=== PATIENT | male | born 1945 | race Two or more races ===

== ENCOUNTER → 2018-07-26 | Outpatient (CLI) | payer MEDICARE ==
--- NOTE | 2018-07-26 09:33 | US ---
EXAMINATION TYPE: US liver DATE OF EXAM: 07/26/2018 COMPARISON: CT 2011 CLINICAL HISTORY: R94.5 ABN LIVER FUNCTIONS. large body habitus EXAM MEASUREMENTS: Liver Length: 13.1 cm Gallbladder Wall: 0.1 cm CBD: 0.2 cm Right Kidney: 10.0 X 4.6 X 4.2 cm Pancreas: Obscured by bowel gas Liver: fatty liver Gallbladder: wnl Evidence for sonographic Wagner's sign: No CBD: wnl Right Kidney: wnl IMPRESSION: 1. Mild hepatic steatosis. Otherwise unremarkable study.
== END | disposition home or self-care (01) ==
LOC: RADUSWWP 08:45
PROVIDERS: ATTEND Family Medicine
DX: K76.0 Fatty (change of) liver, not elsewhere classified (principal)
CPT/HCPCS: 76705

== ENCOUNTER 2024-07-20 08:40 | Emergency (ER) | payer MEDICARE ==
[2024-07-20] MEDS ORDERED: SODIUM CHLORIDE 0.9% 1,000 ML BAG ONE (10:36)
[2024-07-20] MEDS ORDERED: ACETAMINOPHEN IV (For NPO) 1,000 MG/100 ML VIAL ONE (10:36)
--- NOTE | 2024-08-09 08:18 | CT ---
Report Patient: Solo Colvin Ordering Physician: Unknown, Unknown ID: [id number] Phone, Pager: Phone: N/A Pager: N/A : 1945 Age/Gender: 79Y, M Primary Location: N/A Procedure: CT brain wo con Study Date: 07/20/2024 10:06:00 AM EXAMINATION TYPE: CT brain wo con DATE OF EXAM: 07/20/2024 COMPARISON: None HISTORY: 79-year-old male fall, syncope TECHNIQUE: Examination was done in axial plane without intravenous contrast. Coronal and sagittal r econstructions performed. CT DLP: 1106.4 mGycm Automated exposure control for dose reduction was used. FINDINGS: There is no evidence of acute intracranial hemorrhage, acute ischemic changes, mass, mass-effect, or extra-axial fluid collection. There is no effacement of cerebral sulci or basal subarachnoid cister ns. There is no midline shift. Lehman-white matter distinction is preserved. Benign basal ganglionic calcifications on both sides. Mild ventricular prominence likely due to age-r elated central cerebral volume loss. Atherosclerotic calcifications within the carotid siphons. Mild mucosal thickening scattered through the ethmoid air cells and also along the floor of the left maxillary sinus. Orbits and globes are intact. Mastoid air cells well pneumatized. IMPRESSION: Mild age-related cerebral atrophy. No acute intracranial abnormality seen.
--- NOTE | 2024-08-14 11:58 | XR ---
Patient: Solo Colvin Ordering Physician: Unknown, Unknown ID: [id number] Phone, Pager: Phone: N/A Pager: N/A : 1945 Age/Gender: 79Y, M Primary Location: N/A Procedure: XR chest 2V Study Date: 07/20/2024 10:09:37 AM EXAMINATION TYPE: XR chest 2V DATE OF EXAM: 07/20/2024 COMPARISON: 08/18/2013 HISTORY: 79-year-old male fainted with fall. TECHNIQUE: PA and lateral views FINDINGS: Heart mildly enlarged. Prominent pleural parenchymal opacities throughout the right lung shows simila r appearance compared to 08/18/2013. There are chronic fracture deformities throughout the right hemit horax. Patchy and interstitial change especially at the left base appears slightly increased. IMPRESSION: 1. Multiple old right-sided rib fracture deformities. Extensive underlying pleural-parenchymal opacit y may represent post traumatic sequela and fibrosis. An underlying infiltrate would need to be exclud ed on a clinical basis. Patchy atelectasis/infiltrate at the left base appears increased. 2. Correlate to exclude mild fluid overload. No pleural effusion.
--- NOTE | 2024-08-14 11:58 | XR ---
Report Patient: Solo Colvin Ordering Physician: Unknown, Unknown ID: [id number] Phone, Pager: Phone: N/A Pager: N/A : 1945 Age/Gender: 79Y, M Primary Location: N/A Procedure: XR elbow complete LT Study Date: 07/20/2024 10:11:31 AM EXAMINATION TYPE: XR elbow complete LT DATE OF EXAM: 07/20/2024 COMPARISON: NONE HISTORY: 79-year-old male fainted with fall onto elbow TECHNIQUE: 3 views FINDINGS: Some bony spurring at both medial and lateral condyles and some degenerative spurring at th e elbow joint particularly on the lateral view. There is an underlying elbow joint effusion present. Both radiocapitellar and ulnotrochlear lines are appropriately delineated. IMPRESSION: 1. Some degenerative spurring and mild chronic enthesopathy at the common flexor and extensor tendon origins. 2. While no acute fracture is seen, the presence of an underlying elbow joint effusion raises concern for occult osseous injury or internal derangement. Follow-up in 10-14 days.
== END 2024-07-20 12:21 | disposition home or self-care (01) ==
LOC: EC 08:40
CPT/HCPCS: 29125; 70450; 71046; 93005; 99283

== ENCOUNTER 2024-12-09 09:10 | Emergency (ER) | payer MEDICARE ==
[2024-12-09 09:42] VITALS: RESP 18
--- NOTE | 2024-12-09 09:59 | ED ---
Extremity Problem HPI - General Chief complaint: Extremity Problem,Nontraumatic Stated complaint: rt leg injury Time Seen by Provider: 12/09/24 09:43 Source: patient, RN notes reviewed Mode of arrival: wheelchair Limitations: physical limitation - History of Present Illness Initial comments: 79-year-old male presents emergency department complaint of right knee pain. Patient states that he is had issues but states overnight he started having increasing pain and states that he cannot bend it. Patient states she had no redness no fevers or chills no prior history of DVT. Patient states he had no falls. - Related Data Allergies Allergy/AdvReac Type Severity Reaction Status Date / Time No Known Allergies Allergy Verified 12/09/24 09:34 Review of Systems ROS Statement: Those systems with pertinent positive or pertinent negative responses have been documented in the HPI. ROS Other: All systems not noted in ROS Statement are negative. Past Medical History Past Medical History: Diabetes Mellitus, Eye Disorder, Hyperlipidemia, Hypertension Additional Past Medical History / Comment(s): glaucoma History of Any Multi-Drug Resistant Organisms: None Reported Past Surgical History: Tonsillectomy Past Psychological History: No Psychological Hx Reported Smoking Status: Never smoker Past Alcohol Use History: Daily Past Drug Use History: None Reported General Exam Limitations: physical limitation General appearance: alert, in no apparent distress Neck exam: Present: normal inspection, full ROM. Absent: tenderness, meningis mus, lymphadenopathy Respiratory exam: Present: normal lung sounds bilaterally. Absent: respiratory distress, wheezes, rales, rhonchi, stridor Cardiovascular Exam: Present: regular rate, normal rhythm, normal heart sounds. Absent: systolic murmur, diastolic murmur, rubs, gallop, clicks Extremities exam: Present: other (Right knee moderate swelling, neurovascular intact, small effusion noted, pedal pulses equal bilaterally pain with range of motion.) Course Vital Signs 12/09/24 12/09/24 09:35 11:55 Temperature 98.3 F 98.6 F Pulse Rate 79 71 Respiratory 18 18 Rate Blood Pressure 159/83 154/80 O2 Sat by Pulse 97 97 Oximetry Medical Decision Making - Medical Decision Making Was pt. sent in by a medical professional or institution (, PA, PLAY LEADER, urgent care, hospital, or long-term...) When possible be specific @ -No Did you speak to anyone other than the patient for history (EMS, parent, family, police, friend...)? What history was obtained from this source @ -No Did you review nursing and triage notes (agree or disagree)? Why? @ -I reviewed and agree with nursing and triage notes Were old charts reviewed (outside hosp., previous admission, EMS record, old EKG, old radiological studies, urgent care reports/EKG's, long-term records)? Report findings @ -No old charts were reviewed Differential Diagnosis (chest pain, altered mental status, abdominal pain women, abdominal pain men, vaginal bleeding, weakness, fever, dyspnea, syncope, headache, dizziness, GI bleed, back pain, seizure, CVA, palpatations, mental health, musculoskeletal)? @ -Knee pain, knee effusion, osteoarthritis, DVT EKG interpreted by me (3pts min.). @ -None X-rays interpreted by me (1pt min.). @ -X-ray right knee severe osteoarthritis, effusion CT interpreted by me (1pt min.). @ -None done U/S interpreted by me (1pt. min.). @ -Ultrasound venous Doppler right leg negative for acute DVT What testing was considered but not performed or refused? (CT, X-rays, U/S, labs)? Why? @ -None What meds were considered but not given or refused? Why? @ -None Did you discuss the management of the patient with other professionals (professionals i.e. , PA, PLAY LEADER, lab, RT, psych nurse, social service liaison, proof technician helper, teacher, public safety officer, casework supervisor)? Give summary @ -No Was smoking cessation discussed for >3mins.? @ -No Was critical care preformed (if so, how long)? @ -No Were there social determinants of health that impacted care today? How? (Homelessness, low income, unemployed, alcoholism, drug addiction, transportation, low edu. Level, literacy, decrease access to med. care, fci, rehab)? @ -No Was there de-escalation of care discussed even if they declined (Discuss DNR or withdrawal of care, Hospice)? DNR status @ -No What co-morbidities impacted this encounter? (DM, HTN, Smoking, COPD, CAD, Cancer, CVA, ARF, Chemo, Hep., AIDS, mental health diagnosis, sleep apnea, morbid obesity)? @ -None Was patient admitted / discharged? Hospital course, mention meds given and route, prescriptions, significant lab abnormalities, going to OR and other pertinent info. @ -Discharge patient presented for right knee pain patient has effusion noted, osteoarthritis and has been advised that he needs knee replacement. He will contact surgeon for follow-up. Return parameters discussed Undiagnosed new problem with uncertain prognosis? @ -No Drug Therapy requiring intensive monitoring for toxicity (Heparin, Nitro, Insulin, Cardizem)? @ -No Were any procedures done? @ -No Diagnosis/symptom? @ -Osteoarthritis knee effusion right knee pain Acute, or Chronic, or Acute on Chronic? @ -Acute Uncomplicated (without systemic symptoms) or Complicated (systemic symptoms)? @ -uncomplicated Side effects of treatment? @ -No Exacerbation, Progression, or Severe Exacerbation? @ -No Poses a threat to life or bodily function? How? (Chest pain, [place], [place], pneumonia, PE, COPD, DKA, ARF, appy, cholecystitis, CVA, Diverticulitis, Homicidal, Suicidal, threat to staff... and all critical care pts) @ -No Disposition Clinical Impression: Effusion, right knee, Osteoarthritis of right knee Disposition: HOME SELF-CARE Condition: Stable Instructions (If sedation given, give patient instructions): Knee Pain (ED) Additional Instructions: Please return to the Emergency Department if symptoms worsen or any other concerns. Is patient prescribed a controlled substance at d/c from ED?: No Referrals: Alonzo Womack Jr, DO [Primary Care Provider] - 1-2 days Perry Cerrato DO [Doctor of Osteopathic Medicine] - 1-2 days Time of Disposition: 11:09
[2024-12-09] MEDS: HYDROcodone/APAP 5-325MG 1 EACH TAB PO STA (10:01)
--- NOTE | 2024-12-09 10:34 | XR ---
EXAMINATION TYPE: XR knee complete RT DATE OF EXAM: 12/09/2024 10:18 AM COMPARISON: None CLINICAL INDICATION: Male, 79 years old with history of pain; PHH, pain TECHNIQUE: XR knee complete RT 3 views submitted. FINDINGS: No evidence of any acute osseous pathology, soft tissue swelling, or joint effusion is no helen. Degeneration with osteophyte formation involving the femoral condyles, tibial plateau and patell a. Mild joint space narrowing. Atherosclerosis of the arterial vasculature. IMPRESSION: 1. No acute osseous pathology. 2. Moderate to severe medial osteoarthritic changes. [facility], , 12/09/2024 10:31 AM
--- NOTE | 2024-12-09 10:42 | US ---
EXAMINATION TYPE: US venous doppler duplex LE RT DATE OF EXAM: 12/09/2024 9:56 AM COMPARISON: NONE CLINICAL INDICATION: Male, 79 years old with history of pain; Right leg pain, patient on blood thinne rs TECHNIQUE: The lower extremity deep venous system is examined utilizing real time linear array sonog bridget with graded compression, color doppler sonography, and spectral doppler. SIDE PERFORMED: Right FINDINGS: VESSELS IMAGED: Common Femoral Vein Deep Femoral Vein Greater Saphenous Vein * Femoral Vein Popliteal Vein Small Saphenous Vein * Proximal Calf Veins (* superficial vessels) Right Leg: Appears negative for DVT IMPRESSION: No ultrasound evidence for deep venous thrombosis. [facility], , 12/09/2024 10:40 AM
[2024-12-09] MEDS: ACET/COD 300 MG/30 MG STARTER PACK 6 TAB BTL PO STA (11:46)
[2024-12-09 11:56] VITALS: BP 154/80; PULSE 71; TEMP 98.6
== END 2024-12-09 11:56 | disposition home or self-care (01) ==
LOC: EC 09:10
DX: M25.461 Effusion, right knee (principal); M17.11 Unilateral primary osteoarthritis, right knee
CPT/HCPCS: 99284

== ENCOUNTER → 2025-01-21 | Outpatient (CLI) | payer MEDICARE | LOC: CPPFTMAIN 09:01 | PROVIDERS: ATTEND Internal Medicine Critical Care Medicine | DX: J84.9 Interstitial pulmonary disease, unspecified (principal) | CPT/HCPCS: 94060; 94726; 94729 ==

== ENCOUNTER → 2025-02-01 | Outpatient (CLI) | payer MEDICARE ==
[2025-02-02 06:21] LABS: Blood Urea Nitrogen 25.9 mg/dL (9.0-27.0); Calcium 9.2 mg/dL (8.7-10.3); Carbon Dioxide 22.7 mmol/L (21.6-31.8); Chloride 98 mmol/L (96-109); Glucose 93 mg/dL (70-110); Potassium 4.2 mmol/L (3.5-5.5); Sodium 133 mmol/L (135-145)
[2025-02-02 06:28] LABS: Basophils # (A) 0.05 X 10*3/uL (0.00-0.10); Basophils % (A) 0.7 %; Eosinophils # (A) 0.32 X 10*3/uL (0.04-0.35); Eosinophils % (A) 4.2 %; HCT 36.7 % (39.6-50.0); HGB 12.3 g/dL (13.0-17.0); Lymphocytes # (A) 1.66 X 10*3/uL (0.90-5.00); Lymphocytes % (A) 21.6 %; MCH 32.6 pg (27.0-32.0); MCHC 33.5 g/dL (32.0-37.0); MCV 97.3 FL (80.0-97.0); Mean Platelet Volume 10.2 FL (9.5-12.2); Monocytes # (A) 0.67 X 10*3/uL (0.20-1.00); Monocytes % (A) 8.7 %; NRBC Per 100 WBC 0 X 10*3/uL (0.00-0.01); Neutrophils # (A) 4.91 X 10*3/uL (1.80-7.70); Neutrophils % (A) 63.9 %; Platelet Count 264 X 10*3/uL (140-440); RBC 3.77 X 10*6/uL (4.40-5.60); RDW 13.2 % (11.5-14.5); WBC 7.68 X 10*3/uL (4.50-10.00)
[2025-02-02 07:12] LABS: INR 1.07 sec (0.93-1.11); Prothrombin Time 11.9 sec (9.9-11.9)
== END | disposition home or self-care (01) ==
LOC: LABPAT 11:06
PROVIDERS: ATTEND Orthopaedic Surgery
DX: Z01.812 Encounter for preprocedural laboratory examination (principal); M17.11 Unilateral primary osteoarthritis, right knee; Z22.322 Carrier or suspected carrier of Methicillin resistant Staphylococcus aureus
CPT/HCPCS: 80048; 85025; 85610; 87070

== ENCOUNTER 2025-02-10 08:08 | Day surgery (SDC) | payer MEDICARE ==
[2025-02-06 09:56] VITALS: BMI 25.4
--- NOTE | 2025-02-09 15:26 | HP ---
HISTORY AND PHYSICAL Surgery is scheduled, 02/10/2025. Solo Colvin, 79-year-old gentleman seen with symptomatic right knee osteoarthritis. We discussed options regarding treatment. He elected to proceed with right total knee arthroplasty. Consent regarding the procedure was obtained. Medical clearance was provided by Dr. Ballesteros's office. Pulmonary clearance was provided by Dr. Levy's office. PAST MEDICAL HISTORY: Hypertension, hyperlipidemia, osteoarthritis. PAST SURGICAL HISTORY: Noncontributory. DAILY MEDICATIONS: 1. Albuterol inhaler. 2. Losartan. 3. Naprosyn. 4. Pantoprazole. 5. Simvastatin. ALLERGIES: None. SOCIAL HISTORY: Denies tobacco use. PHYSICAL EVALUATION OF THE RIGHT KNEE: Range of motion is 0 to 130 degrees. He has a moderate effusion. Tenderness along the joint lines. Ligaments stable. Hip rotation without pain. Distal neurovascular exam is intact. Right knee radiographs reveal severe osteoarthritic changes. IMPRESSION: 1. Right knee osteoarthritis. 2. Hypertension. 3. Hyperlipidemia. PLAN: Right total knee arthroplasty. MMPRANEETH / ALEXISN: [id number] /
[~2025-02-10 08:08] MED LIST: HYDROmorphone 0.5 MG/0.5 ML SYRINGE IVP PRN; LIDOCAINE 1% (10MG/ML) FOR IV START INTRADERMA PRN; TRANEXAMIC 1,000 MG/100ML-NACL 1,000 MG in SALINE 1 100ML.BAG IVPB PRN
[2025-02-10] MEDS: IV FLUID CONTINUATION 1,000 ML IV ONE (08:38)
[2025-02-10] MEDS: ACETAMINOPHEN TAB 500 MG TAB PO PRN (09:06)
[2025-02-10] MEDS: MELOXICAM 7.5 MG TAB PO PRN (09:06)
[2025-02-10] MEDS: ONDANSETRON 4 MG/2 ML VIAL IVP ONE (09:06)
[2025-02-10] MEDS: DEXAMETHASONE SOD PHOSPHATE 4 MG/ML 1 ML VIAL IVP STA (09:07)
[2025-02-10] MEDS: LACTATED RINGERS 1,000 ML IV SCH (09:07)
[2025-02-10 09:13] LABS: Glucose,Whole Blood 80 mg/dL (70-110)
[2025-02-10] MEDS: MIDAZOLAM 2 MG/2 ML VIAL IV ONE (09:28)
[2025-02-10] MEDS ORDERED: PHENYLEPHRINE-0.9% NACL SYG 1,000 MCG/10 ML SYRINGE ONE (09:59)
[2025-02-10] MEDS ORDERED: fentaNYL (PF) 50 MCG/ML 2 ML AMP ONE (09:59)
[2025-02-10] MEDS ORDERED: ROPIVACAINE 5 MG/ML 30 ML VIAL ONE (09:59)
[2025-02-10] MEDS ORDERED: PROPOFOL 10 MG/ML 20 ML VIAL IV ONE (09:59)
[2025-02-10] MEDS ORDERED: DEXAMETHASONE SOD PHOSPHATE 4 MG/ML 1 ML VIAL ONE (09:59)
[2025-02-10] MEDS ORDERED: MIDAZOLAM 2 MG/2 ML VIAL ONE (09:59)
[2025-02-10] MEDS ORDERED: TRANEXAMIC 1,000 MG/100ML-NACL PREMIX BAG ONE (09:59)
[2025-02-10] MEDS: ceFAZolin 1,000 MG in SODIUM CHLORIDE 0.9% 1,000 ML IRRIGATION ONE (10:29)
[2025-02-10] MEDS: LACTATED RINGERS 1,000 ML IV ONE (11:35)
[2025-02-10] MEDS ORDERED: HYDROmorphone 0.5 MG/0.5 ML SYRINGE IVP PRN ×3 (11:48)
[2025-02-10] MEDS ORDERED: NALOXONE 0.4 MG/ML 1 ML VIAL IV PRN (11:48)
[2025-02-10] MEDS ORDERED: ONDANSETRON 4 MG/2 ML VIAL IVP PRN (11:48)
--- NOTE | 2025-02-10 11:48 | P.OP ---
Date of Procedure: 02/10/25 Preoperative Diagnosis: Right knee osteoarthritis Postoperative Diagnosis: Right knee osteoarthritis Procedure(s) Performed: Right total knee arthroplasty Implants: 1. DePuy attune size 5 right cruciate retaining cemented femur 2. DePuy attune size 6 fixed-bearing cemented tibial baseplate 3. DePuy attune size 5 fixed-bearing cruciate retaining 12 mm polyethylene tibial insert 4. DePuy attune 35 mm all polyethylene cemented patella Anesthesia: regional (Adductor canal catheter, iPAQ block), spinal Surgeon: Perry Cerrato Corporate Executive #1: Chin Espino Estimated Blood Loss (ml): 40 Pathology: none sent Condition: stable Disposition: PACU Indications for Procedure: 79-year-old patient seen with symptomatic right knee osteoarthritis. After having treatment options discussed, he elected to proceed with total knee arthroplasty. Operative Findings: See description of procedure Description of Procedure: Patient was taken to the operative suite after having an adductor canal catheter placed by the department of anesthesia. Patient underwent a spinal anesthetic by the department of anesthesia. Patient was given preoperative IV intake antibiotics and TXA. A well-padded tourniquet was placed about the right lower extremity. The lower extremity was then prepped and draped in the normal sterile orthopedic fashion. The extremity was elevated, a tourniquet was insufflated to 300. A standard anterior incision was made sharply through skin. Dissection was taken down through the subcutaneous soft tissues down to the extensor mechanism. A medial arthrotomy was performed, patella was everted and knee was flexed. There was advanced osteoarthritis noted. I introduced my distal intramedullary femoral drill. I then introduced the distal femoral cutting jig. Ronni HELTON secured the cutting jig with 2 pins. I held retractors in position while Ronni HELTON performed the distal femoral resection through the guide area we now removed her distal femoral cutting guide. We now placed our 4-in-1 femoral cutting block and positioned and it was secured with 2 pins by Ronni HELTON while I held the block in position. The distal femoral finishing was now completed. A proximal tibial cutting guide was positioned. I held the guide in the appropriate position with both hands well Ronni HELTON inserted stabilizing pins into the guide. Proximal tibial cut was made. We now placed a trial femoral component into position, along with an appropriate size tibial tray and insert. We now took the knee through range of motion and had full extension good flexion and good overall soft tissue balance noted. The patella was everted and stabilized with 2 towel clips held by Ronni HELTON while I performed a flush with patellar quad tendon utilizing a fresh sawblade. We templated the patella, appropriate drill holes were made. An appropriate trial patella was positioned, knee was taken through full range of motion with the patella tracking very nicely. The trial patella was removed. Drill holes were made through the femoral component. All trial components were removed after marking off the appropriate rotation of the tibia. Retractors were now positioned along the proximal tibia. An appropriate keel punch was made with the appropriate size tibial guide by myself on Ronni HELTON assisted by holding retractors. At this point appropriate size implants were chosen and opened. The joint was irrigated copiously with pulse lavage mechanical irrigation. The wound was irrigated with pulse lavage mechanical irrigation. We mixed antibiotic methylmethacrylate. We placed the knee into flexion. We placed multiple retractors assisted by Ronni HELTON to expose the proximal tibia. Once the methyl methacrylate was ready, the tibial component was cemented into place removing any excess methylmethacrylate form by both myself and Ronni HELTON. The femoral component was cemented into place removing the removing any excess methylmethacrylate performed by both myself and Ronni HELTON. We then inserted the appropriate size polyethylene tibial insert. We made sure that it was locked into position. We took the knee into full extension, and then back in a flexion making sure we had removed any excess methylmethacrylate. The patellar component was then cemented down and secured with clamp. Excess methylmethacrylate removed. We kept the knee in full extension, patellar clamp in position until methylmethacrylate had hardened. Once it had hardened the patellar clamp was removed. The knee was taken through full range of motion. The patella tracked nicely. There was good soft tissue balancing. The tourniquet was now released. Additional hemostasis was achieved via electrocautery. A second gram of TXA was given. The wound again was irrigated with pulse lavage mechanical irrigation. The extensor mechanism was repaired with Ethibond suture. We checked the repair with range of motion and it was stable. The subcutaneous soft tissues were repaired with Vicryl in layers. The skin was approximated with pernio/Dermabond. Sterile dressings were applied followed by loose web roll and Clayton bandage. The patient was transferred to a bed, and taken to recovery in stable and satisfactory condition. Ronni HELTON assisted with this complex procedure.
[2025-02-10] MEDS: ROPIVACAINE 1,100 MG, SODIUM CHLORIDE 0.9% 500 ML 330 ML, EMPTY PAIN BALL 1 EACH MISCELLANE PRN (12:39)
--- NOTE | 2025-02-10 14:04 | XR ---
EXAMINATION TYPE: XR knee limited RT DATE OF EXAM: 02/10/2025 1:38 PM COMPARISON: 12/09/2024 CLINICAL INDICATION: Male, 79 years old with history of Evaluation for Postop abnormality and alignme nt; PHH, pain TECHNIQUE: XR knee limited RT 2 views submitted. FINDINGS: Status post total knee arthroplasty changes with hardware in appropriate alignment and in tact. No evidence of fracture. Subcutaneous lucencies and lucencies within the joint consistent with surgical changes. IMPRESSION: Status post total knee arthroplasty changes with hardware intact and appropriate alignment. No fractu res identified. [facility], , 02/10/2025 2:02 PM
[2025-02-10 15:39] LABS: Glucose,Whole Blood 188 mg/dL (70-110)
[2025-02-10] MEDS: HYDROcodone/APAP 7.5-325MG 1 EACH TAB PO PRN (22:11)
[2025-02-10] MEDS: ASPIRIN 81 MG PO SCH (22:11)
[2025-02-10] MEDS: SENNOSIDES-DOCUSATE SODIUM 1 EACH TAB PO SCH (22:11)
[2025-02-10 22:48] LABS: Glucose,Whole Blood 160 mg/dL (70-110)
[2025-02-11] MEDS: HYDROcodone/APAP 5-325MG 1 EACH TAB PO PRN (01:49)
[2025-02-11 02:48] VITALS: RESP 18
[2025-02-11 08:37] VITALS: BP 125/63; PULSE 61; TEMP 97.9
[2025-02-11] MEDS: SODIUM CHLORIDE 0.9% 1,000 ML IV SCH (08:54)
[2025-02-11 09:29] LABS: HCT 36.1 % (39.6-50.0); HGB 12.4 g/dL (13.0-17.0); MCH 33.2 pg (27.0-32.0); MCHC 34.3 g/dL (32.0-37.0); MCV 96.5 FL (80.0-97.0); Mean Platelet Volume 10.5 FL (9.5-12.2); NRBC Per 100 WBC 0 X 10*3/uL (0.00-0.01); Neutrophils % (A) 85.9 %; Platelet Count 224 X 10*3/uL (140-440); RBC 3.74 X 10*6/uL (4.40-5.60); RDW 13.5 % (11.5-14.5); WBC 10.38 X 10*3/uL (4.50-10.00)
[2025-02-11 09:30] LABS: Basophils # (A) 0.01 X 10*3/uL (0.00-0.10); Basophils % (A) 0.1 %; Eosinophils # (A) 0 X 10*3/uL (0.04-0.35); Eosinophils % (A) 0 %; Lymphocytes # (A) 0.97 X 10*3/uL (0.90-5.00); Lymphocytes % (A) 9.3 %; Monocytes # (A) 0.44 X 10*3/uL (0.20-1.00); Monocytes % (A) 4.2 %; Neutrophils # (A) 8.91 X 10*3/uL (1.80-7.70)
--- NOTE | 2025-02-11 10:07 | P.PN ---
Subjective Progress Note Date: 02/11/25 Principal diagnosis: Status post right total knee arthroplasty Patient evaluated at bedside today, he is resting in his hospital chair, there are multiple family members present. Patient is done very well working with physical therapy thus far. He is urinating with no issues. His pain is well- controlled with current medications. He denies headaches, lightheadedness, chest pain or shortness of breath Objective - Vital Signs Vital signs: Vital Signs Temp 97.9 F 02/11/25 06:54 Pulse 61 02/11/25 06:54 Resp 18 02/11/25 06:54 BP 125/63 02/11/25 06:54 Pulse Ox 98 02/11/25 06:54 FiO2 Intake & Output 02/10/25 02/11/25 02/11/25 18:59 06:59 18:59 Intake Total 2000 290 Output Total 40 Balance 1960 290 Weight 65 kg 65 kg Intake: IV 2000 50 Oral 240 Output: Estimated Blood Loss 40 Other: # Voids 2 - Exam Right lower extremity: Incision is clean, dry, and intact. The foam dressing is in good condition. There is minimal soft tissue swelling and ecchymosis surrounding the medial and lateral aspects of the incision. Calf is soft, no tenderness with palpation. Plantar flexion, dorsiflexion, EHL, FHL are intact. Sensory exam to light touch throughout the extremity is intact, dorsal pedis pulses 2+. - Labs CBC & Chem 7: 02/11/25 03:01 Labs: Abnormal Lab Results - Last 24 Hours (Table) 02/10/25 02/10/25 02/11/25 Range/Units 15:38 22:46 03:01 WBC 10.38 H (4.50-10.00) X 10*3/uL RBC 3.74 L (4.40-5.60) X 10*6/uL Hgb 12.4 L (13.0-17.0) g/dL Hct 36.1 L (39.6-50.0) % MCH 33.2 H (27.0-32.0) pg Immature Gran # 0.05 H (0.00-0.04) X 10*3/uL Neutrophils # 8.91 H (1.80-7.70) X 10*3/uL Eosinophils # 0 L (0.04-0.35) X 10*3/uL POC Glucose (mg/dL) 188 H 160 H (70-110) mg/dL Assessment and Plan Assessment: Postoperative day #1 status post right total knee arthroplasty Plan: Pain control, plan for discharge home on oral [place] and oral stool softeners DVT prophylaxis, he will increase his aspirin to twice a day for 30 days Wound care instructions were discussed, this to include when to discontinue the On-Q pain catheter, Showering instructions and foam dressing instructions Home PT/nursing after discharge Icing and elevating techniques discussed Medical recommendations appreciated Discharge planning: Patient stable for discharge home today Time with Patient: Less than 30
--- NOTE | 2025-02-11 10:11 | P.DS ---
Providers Date of admission: 02/10/2025 Expected date of discharge: 02/11/25 Attending physician: Perry Cerrato Consults: 02/10/25 11:48 Consult Physician Routine Consulting Provider: Alonzo Womack Jr Consult Reason/Comments: Medical management Do you want consulting provider notified?: Yes Primary care physician: Alonzo Womack [facility] Course: Date of admission: 02/10/2025 Date of discharge: 02/11/2025 Admission diagnosis: Status post right total knee arthroplasty Discharge diagnosis: Same Attending physician: Dr. Cerrato Surgical procedures: Right right total knee arthroplasty Brief history: Patient is a 79-year-old male with a history of progressive primary right knee osteoarthritis. At this point patient has failed conservative treatment measures and has opted to proceed with a elective right total knee arthroplasty. Hospital course: Details of patient's surgery can be found in operative report. Patient tolerated the procedure well and was subsequently transported to orthopedic floor. Patient's orthopeidc and medical care was provided daily. Patient had daily laboratory tests performed for evaluation of overall blood counts. Patient had daily physical therapy to include strengthening range of motion as well as education with walker ambulation. Patient was treated with aspirin for their postoperative DVT prophylaxis during their inpatient stay. Patient was noted to have a relatively uneventful postoperative course. Patient reported satisfactory pain control with oral pain medications by postoperative day 1. Patient showed satisfactory progress with physical therapy. Patient moved steadily through the program and had no difficulty meeting the goals by postoperative day 1. Given patient's otherwise satisfactory course and having met physical therapy goals, plan is to discharge patient home on postoperative day 1. Discharge condition/disposition: Patient will be discharged home in stable condition. Discharge medications: Instructions are given on resumption of patient's normal daily medications per primary care recommendation, in addition patient will be prescribed [place] 5 mg / 325 mg, senna S,. Discharge instructions: 1. Wound care and infection precautions, keep incision dry and covered while showering, no lotions, creams, moisturizers. No soaking, tubs, pools, hottubs. Do not scrub over the incision. 2. Weight-bear as tolerated with walker / cane until follow-up. 3. Ice and elevate when necessary. Do not exceed 20 minutes per hour with ice pack. 4. Utilize compression sleeve until seen at first follow up appointment. 5. Visiting nursing care. 6. Home physical therapy including home CPM. 7. Pain meds and anticoagulants per prescription. 8. Pain medication has potential to cause constipation. Increase oral fluid and fiber intake. Contact primary care provider if you have not had a bowel movement within 48 hours after discharge 9. No anti-inflammatory medication until discussed at first post operative visit, this including Motrin, Aleve, Mobic, Diclofenac. 10. Follow up in office at 2 weeks postop with Ronni Espino PA-C/Sincere Daugherty 11. Follow up with your primary care doctor 7-10 days after discharge. 12. Contact [facility] with any questions, . Procedures: Right total knee arthroplasty Patient Condition at Discharge: Good Plan - Discharge Summary Discharge Rx Participant: Yes New Discharge Prescriptions: New Aspirin [Adult Low Dose Aspirin EC] 81 mg PO BID #60 tab HYDROcodone/APAP 5-325MG [[place] 5-325] 1 tab PO Q6HR PRN #28 tab PRN Reason: Pain Sennosides/Docusate Sodium [Senna-S 8.6-50 mg Tablet] 2 each PO DAILY PRN #30 tablet PRN Reason: Constipation No Action Simvastatin 40 mg PO DAILY Multivit/Iron Sulf/Folic Acid [Multivitamin with Iron] 1 each PO DAILY Latanoprost [Latanoprost 0.005%] 1 drop BOTH EYES HS Fluticasone/Umeclidin/Vilanter [Trelegy Ellipta 100-62.5-25] 1 inhalation INHALATION DAILY Albuterol Inhaler [Ventolin Hfa Inhaler] 2 puff INHALATION QID PRN PRN Reason: Dyspnea Cholecalciferol [Vitamin D3 (25 Mcg = 1000 Iu)] 25 mcg PO DAILY Losartan/Hydrochlorothiazide [Losartan-Hctz 50-12.5 mg Tab] 1 tab PO DAILY Dorzolamide HCl/Pf [Dorzolamide 2% Eye Drop] 10 ml OP BID Aspirin [Adult Low Dose Aspirin EC] 81 mg PO DAILY Discharge Medication List Albuterol Inhaler [Ventolin Hfa Inhaler] 2 puff INHALATION QID PRN 02/06/25 [History] Aspirin [Adult Low Dose Aspirin EC] 81 mg PO DAILY 02/06/25 [History] Cholecalciferol [Vitamin D3 (25 Mcg = 1000 Iu)] 25 mcg PO DAILY 02/06/25 [History] Dorzolamide HCl/Pf [Dorzolamide 2% Eye Drop] 10 ml OP BID 02/06/25 [History] Fluticasone/Umeclidin/Vilanter [Trelegy Ellipta 100-62.5-25] 1 inhalation INHALATION DAILY 02/06/25 [History] Latanoprost [Latanoprost 0.005%] 1 drop BOTH EYES HS 02/06/25 [History] Losartan/Hydrochlorothiazide [Losartan-Hctz 50-12.5 mg Tab] 1 tab PO DAILY 02/06/25 [History] Multivit/Iron Sulf/Folic Acid [Multivitamin with Iron] 1 each PO DAILY 02/06/25 [History] Simvastatin 40 mg PO DAILY 02/06/25 [History] Aspirin [Adult Low Dose Aspirin EC] 81 mg PO BID #60 tab 02/11/25 [Rx] HYDROcodone/APAP 5-325MG [[place] 5-325] 1 tab PO Q6HR PRN #28 tab 02/11/25 [Rx] Sennosides/Docusate Sodium [Senna-S 8.6-50 mg Tablet] 2 each PO DAILY PRN #30 tablet 02/11/25 [Rx] Follow up Appointment(s)/Referral(s): Chin Espino PAC [PHYSICIAN [employer]PER[employer]] - 2 Weeks Activity/Diet/Wound Care/Special Instructions: Orthopedic Discharge Instructions: 1. Wound care and infection precautions, keep incision dry and covered while showering, no lotions, creams, moisturizers. No soaking, pools, hot tubs. Do not scrub over incision. 2. Weight-bear as tolerated with walker / cane until follow-up. 3. Ice and elevate when necessary. Do not exceed 20 minutes per hour with ice pack. 4. Utilize compression sleeve until seen at first follow up appointment. 5. Pain meds and anticoagulants per prescription. 6. Pain medication has potential to cause constipation. Increase oral fluid and fiber intake. Contact primary care provider if you have not had a bowel movement within 48 hours after discharge. 7. No anti-inflammatory medication until discussed at first post operative visit, this including Motrin, Aleve, Mobic, Diclofenac. 8. Follow up in office at 2 weeks postop with Ronni Espino PA-C/Sincere Lan PA-C 9. Follow up with your primary care doctor 7-10 days after discharge. 10. Contact [facility] with any questions, . Wound care instructions: 1. Okay to remove surgical dressing as of 02/19/2025 2. After removal of dressing, okay to shower directly over the incision Discharge Disposition: HOME WITH HOME HEALTH SERVICES
--- NOTE | 2025-02-11 10:34 | P.ANPRN ---
Procedure Note - Anesthesia - Nerve Block Performed Right Adductor Canal Infusion Time Out Performed: Yes Date of Procedure: 02/10/25 Procedure Start Time: : Procedure Stop Time: :38 Location of Patient: PreOp Indication: Acute Post-Operative Pain, Requested by Surgeon Sedation Type: Sedate with meaningful contact maintained Preparation: Sterile Prep, Sterile Dressing Position: Supine Catheter: Indwelling Needle Types: Pajunk Needle Gauge: 21 Ultrasound used to visualize needle placement: Yes Ultrasound used to observe medication spread: Yes Blood Aspirated: No Pain Paresthesia on Injection Noted: No Resistance on Injection: Normal Image Stored and Saved: Yes Events: Uneventful and Well Tolerated (Ropivacaine 0.5% 20 cc plus dexamethasone 4 mg)
--- NOTE | 2025-02-11 10:36 | P.ANPRN ---
Procedure Note - Anesthesia - Nerve Block Performed Right Charles Single Time Out Performed: Yes Date of Procedure: 02/10/25 Procedure Start Time: 09:39 Procedure Stop Time: :42 Location of Patient: PreOp Indication: Acute Post-Operative Pain, Requested by Surgeon Sedation Type: Sedate with meaningful contact maintained (8 4) Preparation: Sterile Prep Position: Supine Needle Types: Pajunk Needle Gauge: 21 Ultrasound used to visualize needle placement: Yes Ultrasound used to observe medication spread: Yes ( textures shapes and) Blood Aspirated: No Pain Paresthesia on Injection Noted: No Resistance on Injection: Normal Image Stored and Saved: Yes Events: Uneventful and Well Tolerated (Ropivacaine 0.5% 20 cc plus dexamethasone 4 mg)
--- NOTE | 2025-02-11 11:54 | P.PN ---
Progress Note - Text 02/11/25 649am 79-year-old male status post total knee replacement by Dr. Ponce. Patient has an On-Q pump for postop pain control with a solution running at 8 cc an hour with a VAS of 1. Dressing clean dry and intact. Plan to continue On-Q pump infusion
[2025-02-11] MEDS ORDERED: MULTIVITAMINS, THERA 1 EACH TAB PO SCH (12:00)
== END 2025-02-11 12:02 | disposition home health service (06) ==
LOC: OR 08:08 → 4SSUR 19:52 → OR 02-11 12:02
PROVIDERS: ATTEND Orthopaedic Surgery
DX: M17.11 Unilateral primary osteoarthritis, right knee (principal); E78.5 Hyperlipidemia, unspecified; G89.18 Other acute postprocedural pain; I10 Essential (primary) hypertension; J84.10 Pulmonary fibrosis, unspecified; N28.9 Disorder of kidney and ureter, unspecified; Z79.82 Long term (current) use of aspirin; Z79.899 Other long term (current) drug therapy; Z90.89 Acquired absence of other organs
CPT/HCPCS: 27447; 97161; 64999; 64448; 85025; 73560; C1776; C1713 ×2; C1751; J2250; J1100; J0690 ×3; J2405; J3010; J2795; J2704; J2371

== ENCOUNTER → 2025-06-10 | Outpatient (CLI) | payer MEDICARE ==
[2025-06-10 14:57] LABS: Bilirubin,Urine Negative (Negative); Blood,Urine Negative (Negative); Color,Urine Yellow (Yellow); Ketones,Urine Negative (Negative); Nitrite,Urine Negative (Negative); PH, Urine 7.5; Specific Gravity,Urine 1.010 (1.001-1.030); Urobilinogen,Urine 1.0 E.U./DL
[2025-06-10 15:02] LABS: Bacteria,Urine None Seen (None Seen)
[2025-06-10 15:39] LABS: Basophils # (A) 0.04 X 10*3/uL (0.00-0.10); Basophils % (A) 0.5 %; Eosinophils # (A) 0.16 X 10*3/uL (0.04-0.35); Eosinophils % (A) 2.1 %; HCT 35.8 % (39.6-50.0); HGB 12.3 g/dL (13.0-17.0); Immature Grans, Automated 0.40 %; Lymphocytes # (A) 1.62 X 10*3/uL (0.90-5.00); Lymphocytes % (A) 21.7 %; MCH 32.6 pg (27.0-32.0); MCHC 34.4 g/dL (32.0-37.0); MCV 95.0 FL (80.0-97.0); Monocytes # (A) 0.84 X 10*3/uL (0.20-1.00); Monocytes % (A) 11.2 %; NRBC Per 100 WBC 0 X 10*3/uL (0.00-0.01); Neutrophils # (A) 4.78 X 10*3/uL (1.80-7.70); Neutrophils % (A) 64.1 %; Platelet Count 236 X 10*3/uL (140-440); RBC 3.77 X 10*6/uL (4.40-5.60); RDW 13.7 % (11.5-14.5); WBC 7.47 X 10*3/uL (4.50-10.00)
[2025-06-10 15:49] LABS: ALT 14 U/L (10-49); AST 31 U/L (14-35); Albumin 4.0 g/dL (3.8-4.9); Albumin/Globulin Ratio 1.74 Ratio (1.60-3.17); Alkaline Phosphatase 77 U/L (41-126); Anion Gap 11.10 mmol/L (4.00-12.00); BUN/Creat Ratio 15.73 Ratio (12.00-20.00); Blood Urea Nitrogen 17.3 mg/dL (9.0-27.0); Calcium 9.2 mg/dL (8.7-10.3); Carbon Dioxide 23.9 mmol/L (21.6-31.8); Chloride 92 mmol/L (96-109); Globulin 2.3 g/dL (1.6-3.3); Glucose 86 mg/dL (70-110); Magnesium 1.3 mg/dL (1.5-2.4); Potassium 4.3 mmol/L (3.5-5.5); Sodium 127 mmol/L (135-145); Total Protein 6.3 g/dL (6.2-8.2)
== END | disposition home or self-care (01) ==
LOC: LABWHC1 11:20
PROVIDERS: ATTEND Internal Medicine
DX: N18.30 Chronic kidney disease, stage 3 unspecified (principal)
CPT/HCPCS: 36415; 80053; 81001; 82043; 82570; 83735; 84100; 85025